=== PATIENT | male | born 1980 | race Caucasian/White ===

== ENCOUNTER 2021-09-13 07:55 | Emergency (ER) | payer OTHER ==
[2021-09-13 08:41] LABS: HEMOGLOBIN 15.1 gm/dl (14.0-17.5); RED BLOOD COUNT 4.81 M/UL (4.20-5.50); WHITE BLOOD COUNT 6.8 K/UL (4.5-11.0)
[2021-09-13 09:06] LABS: BUN/CREATININE RATIO 10 (0-10)
[2021-09-13] MEDS ORDERED: VISTARIL 50 MG50 MG PO (13:34)
[2021-09-13] MEDS ORDERED: CEPHALEXIN500 M1 PO (14:20)
== END 2021-09-13 13:47 | disposition home or self-care (01) ==
LOC: ER1 07:55
PROVIDERS: Physician Assistant
DX: F41.9 Anxiety disorder, unspecified (principal); R07.9 Chest pain, unspecified; R20.0 Anesthesia of skin; E11.9 Type 2 diabetes mellitus without complications; I48.91 Unspecified atrial fibrillation; I10 Essential (primary) hypertension; E78.5 Hyperlipidemia, unspecified; Z79.82 Long term (current) use of aspirin; Z79.899 Other long term (current) drug therapy
CPT/HCPCS: 70450; 71045; 80053; 81001; 82550; 82553; 84484; 85025; 85379; 87086; 93005; 96374; 99285; J2060

== ENCOUNTER → 2021-09-27 | Outpatient (CLI) | payer OTHER ==
[~2021-09-27] MED LIST: CEPHALEXIN500 M1 PO; VISTARIL 50 MG50 MG PO
== END ==
LOC: EMI 09-13 09:00
DX: R51.9 Headache, unspecified (principal); E78.5 Hyperlipidemia, unspecified; F41.9 Anxiety disorder, unspecified; I50.22 Chronic systolic (congestive) heart failure
CPT/HCPCS: 70544

== ENCOUNTER 2021-10-22 20:57 | Emergency (ER) | payer OTHER ==
[2021-10-22 21:46] LABS: HEMOGLOBIN 14.3 gm/dl (14.0-17.5); RED BLOOD COUNT 4.53 M/UL (4.20-5.50); WHITE BLOOD COUNT 15.9 K/UL (4.5-11.0)
[2021-10-23 02:03] LABS: HEMOGLOBIN 13.1 gm/dl (14.0-17.5); RED BLOOD COUNT 4.19 M/UL (4.20-5.50); WHITE BLOOD COUNT 12.7 K/UL (4.5-11.0)
[2021-10-23] MEDS ORDERED: ZOFRAN ODT 4 MG4 MG SL ×2 (02:19→07:20)
[2021-10-23] MEDS ORDERED: ENDOCET 5-3251 EACH PO (07:20)
== END 2021-10-23 17:27 | disposition home or self-care (01) ==
LOC: ER1 20:57
PROVIDERS: Emergency Medicine
DX: N13.2 Hydronephrosis with renal and ureteral calculous obstruction (principal); I11.9 Hypertensive heart disease without heart failure; F17.200 Nicotine dependence, unspecified, uncomplicated; N17.9 Acute kidney failure, unspecified; Z88.8 Allergy status to other drugs, medicaments and biological substances
CPT/HCPCS: 80048; 80053; 81001; 83690; 85025; 87086; 96360; 96361; 96374; 99284; J0696; Q9967